=== PATIENT | female | born 1960 | race Two or more races ===

== ENCOUNTER 2019-09-17 09:57 | Inpatient (IN) | payer OTHER ==
[~2019-09-17] VITALS: Ht 165.1 cm; Wt 31.2 kg
[2019-09-17] MEDS ORDERED: SODIUM CHLORIDE 0.9% 500 ML IVB ONE (10:24)
[2019-09-17] MEDS ORDERED: MORPHINE SULFATE 4 MG/ML SYR/VIAL IV ONE (10:30)
[2019-09-17] MEDS ORDERED: ONDANSETRON HCL 4 MG/2 ML VIAL IV ONE (10:30)
[2019-09-17 11:03] LABS: Basophils # (auto) 0 uL; Basophils % (auto) 0.8 % (0.0-2.0); Eosinophils # (auto) 0 uL; Hemoglobin 11.2 g/dL (12.2-16.2); Neutrophils # (auto) 4.5 uL
[2019-09-17 11:04] LABS: Eosinophils % (auto) 0.4 % (0.0-7.0); Hematocrit 34.8 % (36.0-46.0); Lymphocytes # (auto) 0.9 uL; Lymphocytes % (auto) 15.8 % (10.0-50.0); Mean Corpuscular Hemoglobin 23.4 pg (28.0-32.0); Monocytes # (auto) 0.1 uL; Nucleated Red Blood Cells % 0.1 %; Platelet Count (auto) 220 10^3/uL (140-450); Red Blood Cells 4.77 10^6/uL (4.0-5.20); Red Cell Distribution Width 17.2 % (11.8-14.3); White Blood Cell 5.4 10^3/uL (4.4-10.8)
[2019-09-17 11:16] LABS: Urine Bacteria NONE SEEN /hpf (None Seen); Urine Blood Negative /uL (Negative); Urine Mucus FEW (None Seen); Urine Specific Gravity 1.025 (1.001-1.035); Urine WBC 3 /hpf (0 - 5)
[2019-09-17 11:28] LABS: Potassium 3.6 mmol/L (3.5-5.1)
[2019-09-17] MEDS ORDERED: cefTRIAXone 1GM/50ML D5W 50 ML IV ONE ×2 (11:30→13:00)
[2019-09-17 11:31] LABS: BUN/Creatinine Ratio 9.2; Bilirubin, Total 0.6 mg/dL (0.2-1.0); Total Protein 8.3 g/dL (6.4-8.2)
[2019-09-17] MEDS ORDERED: MORPHINE SULF INJ 2 MG/ML SYRINGE 1ML IV PRN ×2 (12:30)
[2019-09-17] MEDS ORDERED: ONDANSETRON HCL 4 MG/2 ML VIAL IV PRN (12:30)
[2019-09-17] MEDS ORDERED: DEXTROSE (50%) 50ML SYRG IV PRN (12:30)
[2019-09-17] MEDS ORDERED: NITROGLYCERIN 0.4 MG SL TAB SL PRN (12:30)
[2019-09-17 12:55] LABS: Cholesterol 232 mg/dL (< 200); HDL Cholesterol 88 mg/dL (40-59); LDL Cholesterol 125 mg/dL (< 100); Triglycerides 67 mg/dL (< 150)
[2019-09-17 13:04] LABS: Partial Thromboplastin Time 24.2 sec (23.64-32.05)
[2019-09-17] MEDS: SOD CHL 0.9%/ KCL 20MEQ 1,000 ML IV SCH ×2 (13:34→22:42)
[2019-09-17] MEDS: metroNIDAZOLE 500MG/100ML 100 ML IV SCH ×2 (14:39→23:08)
[2019-09-17] MEDS ORDERED: METF-370 PO (14:44)
[2019-09-17 16:32] LABS: INR 1.05 (0.9-1.15); Partial Thromboplastin Time 24.5 sec (23.64-32.05)
[2019-09-17] MEDS: InsuLIN REG 1unit/0.01ml Soln (100units/ml) SC SCH ×2 (16:55→23:47)
[2019-09-17] MEDS: ACCU-CHEK COMFORT CURVE STRIP VI SCH ×2 (16:56→23:23)
[2019-09-17] MEDS ORDERED: ACETAMINOPHEN 325 MG TAB PO ONE (23:45)
[2019-09-18] MEDS ORDERED: GLIP5TAB12 PO (05:41)
[2019-09-18] MEDS ORDERED: ASPI81CH43 GT (05:41)
[2019-09-18] MEDS ORDERED: SODIUM CHLORIDE 0.9% 1,000 ML IV SCH (05:45)
[2019-09-18] MEDS ORDERED: SODIUM CHLORIDE 0.9% 500 ML IV ONE (05:45)
[2019-09-18 06:21] LABS: Basophils # (auto) 0 uL; Basophils % (auto) 0.4 % (0.0-2.0); Eosinophils # (auto) 0 uL; Eosinophils % (auto) 0.1 % (0.0-7.0); Hematocrit 30.2 % (36.0-46.0); Hemoglobin 9.7 g/dL (12.2-16.2); Lymphocytes # (auto) 0.7 uL; Lymphocytes % (auto) 7.5 % (10.0-50.0); Mean Corpuscular Hemoglobin 23.5 pg (28.0-32.0); Mean Corpuscular Hgb Conc. 32.1 g/dL (32.0-36.0); Monocytes # (auto) 0.4 uL; Monocytes % (auto) 4.3 % (0.0-12.0); Neutrophils # (auto) 8.3 uL; Neutrophils % (auto) 87.7 % (37.0-80.0); Platelet Count (auto) 170 10^3/uL (140-450); Red Blood Cells 4.14 10^6/uL (4.0-5.20); Red Cell Distribution Width 17.1 % (11.8-14.3); White Blood Cell 9.5 10^3/uL (4.4-10.8)
[2019-09-18] MEDS: metroNIDAZOLE 500MG/100ML 100 ML IV SCH ×3 (06:23→21:45)
[2019-09-18 06:28] LABS: Potassium 3.4 mmol/L (3.5-5.1)
[2019-09-18 06:34] LABS: BUN/Creatinine Ratio 10.7; Calcium 8.4 mg/dL (8.5-10.1)
[2019-09-18] MEDS: InsuLIN REG 1unit/0.01ml Soln (100units/ml) SC SCH ×4 (07:00→21:58)
[2019-09-18] MEDS: ACCU-CHEK COMFORT CURVE STRIP VI SCH ×4 (07:24→21:56)
[2019-09-18] MEDS ORDERED: fentaNYL CITRATE 100 MCG/2 ML VL ONE (08:24)
[2019-09-18] MEDS ORDERED: MIDAZOLAM HCL 1MG/1ML-2 ML VIAL ONE (08:24)
[2019-09-18] MEDS ORDERED: ROCURONIUM 10MG/ML 10ML VIAL IV ONE (08:24)
[2019-09-18] MEDS ORDERED: MEPERIDINE HCL (50 MG/ML) 1 ML VIAL ONE (08:24)
[2019-09-18] MEDS ORDERED: SODIUM CHLORIDE LOCK 10 ML ONE (08:25)
[2019-09-18] MEDS ORDERED: LIDOCAINE HCL 2% TOP JELLY 5ML TOP ONE (08:25)
[2019-09-18] MEDS ORDERED: PROPOFOL 10 MG/ML 20 ML IV ONE (08:25)
[2019-09-18 08:34] LABS: Basophils # (auto) 0.1 uL; Eosinophils # (auto) 0 uL; Eosinophils % (auto) 0.1 % (0.0-7.0); Lymphocytes # (auto) 0.5 uL; Monocytes # (auto) 0.5 uL; Red Cell Distribution Width 17.5 % (11.8-14.3); White Blood Cell 8.9 10^3/uL (4.4-10.8)
[2019-09-18 08:36] LABS: Basophils % (auto) 0.8 % (0.0-2.0); Hematocrit 31.2 % (36.0-46.0); Lymphocytes % (auto) 5.3 % (10.0-50.0); Mean Corpuscular Hemoglobin 23.8 pg (28.0-32.0); Mean Corpuscular Volume 74.5 fL (80.0-100.0); Monocytes % (auto) 5.9 % (0.0-12.0); Neutrophils # (auto) 7.8 uL; Neutrophils % (auto) 87.9 % (37.0-80.0); Platelet Count (auto) 170 10^3/uL (140-450); Red Blood Cells 4.19 10^6/uL (4.0-5.20)
[2019-09-18 08:46] LABS: Albumin 2.9 g/dL (3.4-5.0); Calcium 8.1 mg/dL (8.5-10.1); Potassium 3.3 mmol/L (3.5-5.1)
[2019-09-18 08:48] LABS: INR 1.14 (0.9-1.15)
[2019-09-18 08:50] LABS: BUN/Creatinine Ratio 9.4; Bilirubin, Total 0.3 mg/dL (0.2-1.0); Total Protein 6.8 g/dL (6.4-8.2)
[2019-09-18] MEDS: cefTRIAXone 1GM/50ML D5W 50 ML IV SCH (09:00)
[2019-09-18] MEDS: SOD CHL 0.9%/ KCL 20MEQ 1,000 ML IV SCH ×2 (09:01→12:45)
[2019-09-18] MEDS: POVIDONE IODINE 5% TOPICAL CREAM TOP ONE ×2 (09:05→10:21)
[2019-09-18] MEDS ORDERED: SUCCINYLCHOLINE CHLORIDE 20 MG/ML 10ML VIAL IV ONE (09:19)
[2019-09-18] MEDS ORDERED: ceFAZolin 1GM/50ML 50 ML IV ONE (09:20)
[2019-09-18] MEDS ORDERED: fentaNYL CITRATE 100 MCG/2 ML VL IV PRN (09:30)
[2019-09-18] MEDS ORDERED: METOCLOPRAMIDE HCL 5MG/ml INJ 2ml VIAL IV PRN (09:30)
[2019-09-18] MEDS ORDERED: ACCU-CHEK COMFORT CURVE STRIP VI ONE (09:30)
[2019-09-18] MEDS ORDERED: MORPHINE SULFATE 4 MG/ML SYR/VIAL IV PRN (09:30)
[2019-09-18] MEDS ORDERED: KETOROLAC TROMETH 30 MG/ML 1ML VIAL IV ONE (09:30)
[2019-09-18] MEDS ORDERED: GLYCOPYRROLATE 0.2 MG/ML 1ML VIAL ONE (09:59)
[2019-09-18] MEDS ORDERED: NEOSTIGMINE 1 MG/ML INJ (10mg/10ML VIAL) ONE (09:59)
[2019-09-18] MEDS: HYDROmorphone HCL 2 MG/ML VL IV PRN ×4 (10:52→11:24)
--- NOTE | 2019-09-18 15:00 | NUR ---
PATIENT ARRIVED TO UNIT PATIENT ORIENTED X4 ORIENTED PATIENT TO UNIT, STAFF, CALL LIGHT, VISITING HOURS AND BATHROOM PATIENT VERBALIZED UNDERSTANDING. PATIENT VITALS WITHIN NORMAL LIMITS EXCEPT FOR TEMP 103.2. PAGED. PATIENT DENIES ANY PAIN, SOB OR DISTRESS AT THIS TIME. IS AT BEDSIDE PATIENT EDUCATED HOW TO USE IT AND HOW OFTEN PATIENT DEMONSTRATED USE, BANDAGES DRY AND INTACT. BED IN LOWEST LOCKED POSITION CALL LIGHT WITH IN REACH WILL CONTINUE TO MONITOR
--- NOTE | 2019-09-18 15:20 | NUR ---
[facility] CALLED ASKING FOR MD LEE TO CALL HER BACK. CALL BACK NUMBER [phone]. CALLED [facility] AND LEFT MESSAGE
[2019-09-18 16:21] VITALS: BP 139/68
[2019-09-18] MEDS ORDERED: ACETAMINOPHEN 325 MG TAB PO PRN (16:45)
[2019-09-18] MEDS: ACETAMINOPHEN 325 MG TAB PO PRN (17:29)
--- NOTE | 2019-09-18 20:00 | NUR ---
RECEIVE IN BED 3PUNCTURE SITES CHECKEDABDOMINAL BINDER IS ON
[2019-09-18 22:34] VITALS: BP 95/48
[2019-09-19] MEDS: SOD CHL 0.9%/ KCL 20MEQ 1,000 ML IV SCH (04:00)
[2019-09-19] MEDS: ACETAMINOPHEN 325 MG TAB PO PRN (04:52)
[2019-09-19] MEDS: metroNIDAZOLE 500MG/100ML 100 ML IV SCH ×2 (05:51→14:00)
[2019-09-19 06:03] VITALS: BP 114/54
[2019-09-19] MEDS: InsuLIN REG 1unit/0.01ml Soln (100units/ml) SC SCH ×2 (06:22→11:42)
[2019-09-19] MEDS: ACCU-CHEK COMFORT CURVE STRIP VI SCH ×2 (06:22→11:43)
[2019-09-19] MEDS: cefTRIAXone 1GM/50ML D5W 50 ML IV SCH (08:20)
[2019-09-19 09:17] VITALS: BP 102/55
[2019-09-19] MEDS ORDERED: HYDROcodone-ACET 5/325MG TAB PO PRN (09:30)
[2019-09-19 09:46] LABS: Basophils # (auto) 0 uL; Eosinophils # (auto) 0 uL; Eosinophils % (auto) 0.1 % (0.0-7.0); Hemoglobin 9.2 g/dL (12.2-16.2); Lymphocytes # (auto) 0.7 uL; Monocytes # (auto) 0.7 uL; Neutrophils # (auto) 5.4 uL; Red Blood Cells 3.86 10^6/uL (4.0-5.20)
[2019-09-19 09:49] LABS: Basophils % (auto) 0.2 % (0.0-2.0); Hematocrit 28.4 % (36.0-46.0); Lymphocytes % (auto) 10.8 % (10.0-50.0); Mean Corpuscular Hemoglobin 23.9 pg (28.0-32.0); Mean Corpuscular Hgb Conc. 32.4 g/dL (32.0-36.0); Mean Corpuscular Volume 73.6 fL (80.0-100.0); Monocytes % (auto) 9.7 % (0.0-12.0); Neutrophils % (auto) 79.2 % (37.0-80.0); Platelet Count (auto) 150 10^3/uL (140-450); Red Cell Distribution Width 17.4 % (11.8-14.3); White Blood Cell 6.8 10^3/uL (4.4-10.8)
--- NOTE | 2019-09-19 09:59 | NUR ---
TELE BOX RETURNED TO ICU TELE REMOVED CLEANED AND SENT TO ICU
[2019-09-19] MEDS ORDERED: DOCUSATE ORAL LIQUID 100 MG/10 ML UD PO SCH (10:00)
[2019-09-19 13:13] VITALS: BP 112/68
--- NOTE | 2019-09-19 13:26 | NUR ---
tRANSFER: Per Magda (ph at [facility], pt has been accepted by Dr. Gaston at [facility]. Ph for report is [phone] and ask for ZE. [facility] is arranging transport and I do not have an eta as of yet
--- NOTE | 2019-09-19 13:30 | NUR ---
[facility] ph is [phone]
--- NOTE | 2019-09-19 13:34 | NUR ---
pt will go to rm 196 bed 2 at [facility]
--- NOTE | 2019-09-19 13:35 | NUR ---
Maranda Man just called back and stated [facility] ph [phone] is on will call,
--- NOTE | 2019-09-19 13:57 | NUR ---
REPORT GIVEN TO RN AT [facility] REPORT GIVEN TO GENEVIEVE WELLS COVERING FOR SKIP RECEIVING RN. POTASSIUM PO WAS GIVEN TO PATIENT. ALL INFORMATION REQUESTED WAS GIVEN. PATIENT STABLE AT THIS TIME.
[2019-09-19 13:58] VITALS: BP 112/68
[2019-09-19] MEDS ORDERED: POTASSIUM CHL 20 Meq TABLET PO ONE (14:15)
--- NOTE | 2019-09-19 16:08 | NUR ---
TRANSFER NOTE PATIENT ALERT AND ORIENTED X4 ALL DISCHARGE INSTRUCTIONS GIVEN ALL QUESTIONS AND CONCERNS ADDRESSED, PATIENT VERBALIZED UNDERSTANDING. REPORT GIVEN TO ACCEPTING RN AT [facility]. PATIENT RECEIVED 40MEQ PO OF POTASSIUM. PATIENT STATED SHE HAD A BOWEL MOVEMENT AND PASSED GAS. TRANSPORT TEAM INFORMED TO TELL RECEIVING RN AT FACILITY. LAST SET OF VITAL SIGNS DONE 15 MINUTES BEFORE TRANSPORT TEAM ARRIVED: BP 110/44 TEMP 101.4 PATIENT REFUSED TYLENOL, HR 105 RESPIRATIONS 18. PATIENT DENIES ANY DISTRESS OR SOB. PATIENT VERBALIZED FEELING SOME PAIN IN HER ABDOMEN BUT REFUSED ANY PAIN MEDICATION. DRESSING TO INCISIONS DRY AND INTACT ABDOMINAL BINDER ON. IV TO LEFT FOREARM IN PLACE ASYMPTOMATIC AND PATENT FOR TRANSPORTATION. PATIENT HAS ALL HER ITEMS. CARE ENDORSED TO TRANSPORT TEAM
== END 2019-09-19 16:29 | disposition short-term general hospital (02) | DRG 342 ==
LOC: ER 09:57 → TELE 09:58 → TELE-EAST 09-18 09:30
PROVIDERS: ADMIT Nurse Practitioner Acute Care; ATTEND Internal Medicine
PROC: 0DTJ4ZZ Resection of Appendix, Percutaneous Endoscopic Approach (ICD-10-PCS; principal; 2019-09-18 09:29)
DX: K35.80 Unspecified acute appendicitis (principal); Z68.1 Body mass index [BMI] 19.9 or less, adult; D50.9 Iron deficiency anemia, unspecified; E11.9 Type 2 diabetes mellitus without complications; E66.9 Obesity, unspecified; E78.00 Pure hypercholesterolemia, unspecified; E78.5 Hyperlipidemia, unspecified; I10 Essential (primary) hypertension; K44.9 Diaphragmatic hernia without obstruction or gangrene; Z79.84 Long term (current) use of oral hypoglycemic drugs
CPT/HCPCS: 36415; 71045; 74176; 76705; 80048; 80053; 80061; 81001; 82150; 82962; 83036; 83690; 85025; 85610; 85730; 86850; 86900; 86901; 87040; 93005; 93306; G0378; J0330; J0690; J0696; J1815; J2250; J2405; J2704; J3490